=== PATIENT | female | born 2005 | race Caucasian/White ===

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

== ENCOUNTER 2024-02-08 22:20 | Emergency (ER) | payer OTHER ==
[~2024-02-08] VITALS: Ht 162.5 cm; Wt 64.9 kg
[~2024-02-08 22:20] MED LIST changes: +PREDNISONE20 M1 PO
[2024-02-08] MEDS ORDERED: Tdap Vaccine 0.5 ML SYR (Adult Vaccine) IM ONE (22:45)
[2024-02-08] MEDS ORDERED: CEPHALEXIN500 M1 PO (22:57)
== END 2024-02-08 23:03 | disposition home or self-care (01) ==
LOC: ED 22:20
DX: S81.011A Laceration without foreign body, right knee, initial encounter (principal); Z88.1 Allergy status to other antibiotic agents; Z98.890 Other specified postprocedural states; W19.XXXA Unspecified fall, initial encounter; Y93.89 Activity, other specified; Y92.89 Other specified places as the place of occurrence of the external cause; Y99.0 Civilian activity done for income or pay

== ENCOUNTER 2024-04-09 21:59 | Emergency (ER) | payer SELFPAY ==
[~2024-04-09] VITALS: Ht 165.1 cm; Wt 59.6 kg
[~2024-04-09 21:59] MED LIST changes: +CEPHALEXIN500 M1 PO
[2024-04-09] MEDS ORDERED: SODIUM CHLORIDE 0.9% 1,000 ML IV ONE (23:50)
[2024-04-09] MEDS ORDERED: methylPREDNISolone sod succ 125 MG VIAL IV ONE (23:55)
[2024-04-09] MEDS ORDERED: Metoclopramide Hydrochloride 10 MG/2 ML VIAL IV ONE (23:55)
[2024-04-09] MEDS ORDERED: Ketorolac Tromethamine 30 MG/ML VIAL IV ONE (23:55)
== END 2024-04-10 02:08 | disposition home or self-care (01) ==
LOC: ED 21:59
DX: G43.909 Migraine, unspecified, not intractable, without status migrainosus (principal); Z88.1 Allergy status to other antibiotic agents; Z98.890 Other specified postprocedural states

== ENCOUNTER 2024-05-27 17:04 | Emergency (ER) | payer OTHER ==
[~2024-05-27] VITALS: Wt 60.8 kg
[2024-05-27] MEDS ORDERED: traMADol Hydrochloride 50 MG TAB PO ONE (17:40)
[2024-05-27] MEDS ORDERED: MELOXICAM15 MG PO (19:09)
== END 2024-05-27 19:25 | disposition home or self-care (01) ==
LOC: ED 17:04
DX: S80.01XA Contusion of right knee, initial encounter (principal); S09.8XXA Other specified injuries of head, initial encounter; Z88.1 Allergy status to other antibiotic agents; V89.2XXA Person injured in unspecified motor-vehicle accident, traffic, initial encounter; Y93.89 Activity, other specified; Y92.488 Other paved roadways as the place of occurrence of the external cause; Y99.8 Other external cause status

== ENCOUNTER 2024-09-16 13:08 | Emergency (ER) | payer SELFPAY ==
[~2024-09-16] VITALS: Ht 162.5 cm; Wt 63.5 kg
[~2024-09-16 13:08] MED LIST changes: +MELOXICAM15 MG PO
[2024-09-16] MEDS ORDERED: MELOXICAM15 MG PO (17:07)
== END 2024-09-16 17:13 | disposition home or self-care (01) ==
LOC: ED 13:08
DX: S93.402A Sprain of unspecified ligament of left ankle, initial encounter (principal); Z88.1 Allergy status to other antibiotic agents; X50.9XXA Other and unspecified overexertion or strenuous movements or postures, initial encounter; Y93.89 Activity, other specified; Y92.89 Other specified places as the place of occurrence of the external cause; Y99.8 Other external cause status